=== PATIENT | male | born 1925 | race Caucasian/White ===

== ENCOUNTER → 2016-07-06 | Outpatient (CLI) | payer OTHER ==
[~2016-07-06] MED LIST: ACETAMINOPHEN325 M1 PO; COZAAR 50 MG TA50 M1 PO; MULTIVITAMINS1 EAC7 PO; XARELTO20 MG PO
--- NOTE | ~2016-07-06 | 2DMMODE ---
[facility] [address] 2 D/M-MODE ECHOCARDIOGRAM Name: JORDENMARÍA E Room #: REG CL Sammi#: [id number] Admission: 07/06/16 Attend Phys: Augustin Mary Discharge: Date of : [birth year] Date of Service: 07/06/16 0945 Report #: [id number] THIS REPORT FOR: //name// APPROVED REPORT Study performed: 07/06/2016 08:03:02 EXAM: Comprehensive 2D, Doppler, and color-flow Echocardiogram Patient Location: Out-Patient Status: routine Other Information Study Quality: Adequate Indications Permanent Afib. Pacemaker, HTN 2D Dimensions RVDd: 44.34 mm LVEF(%): 64.48 (>50%) IVSd: 11.43 (7-11mm) LVOT Diam: 20.81 (18-24mm) LVDd: 44.92 mm PWd: 8.78 (7-11mm) Ascending Ao: 34.26 (22-36mm) LVDs: 29.18 (25-40mm) Aortic Root: 32.76 mm Matta's LVEF: 64.48 % Volumes Left Atrial Volume (Systole) Single Plane 4CH: 163.40 mL Single Plane 2CH: 139.02 mL LA ESV Index: 85.00 mL/m2 Aortic Valve AoV Peak Wilian.: 2.08 m/s AO Peak Gr.: 17.27 mmHg LVOT Max P.93 mmHg AO Mean Gr.: 9.07 mmHg AO V2 Mean: 1.44 m/s LVOT Max V: 0.99 m/s AO V2 VTI: 47.06 cm CHHAYA Vmax: 1.62 cm2 Mitral Valve MV Decel. Time: 174.77 ms MV E Max Wilian.: 1.39 m/s IVRT: 59.98 ms [facility] [address] 2 D/M-MODE ECHOCARDIOGRAM Name: MARÍA LEONARDO Room #: CYNDI Saenz#: [id number] Admission: 07/06/16 Attend Phys: Augustin Mary Discharge: Date of : [birth year] Date of Service: 07/06/16 0945 Report #: [id number] Pulmonary Valve PV Peak Wilian.: 0.77 m/s PV Peak Gr.: 2.36 mmHg Pulmonary Vein P Vein S: 0.49 m/s P Vein D: 0.60 m/s P Vein S/D Ratio: 0.82 Tricuspid Valve TR Peak Wilian.: 3.00 m/s RAP Estimate: 5.00 mmHg TR Peak Gr.: 36.05 mmHg RVSP: 41.00 mmHg Left Ventricle The left ventricle is normal size. There is normal LV segmental wall motion. There is normal left ventricular wall thickness. Left ventricular systolic function is normal. LVEF is 55-60%. This study is not technically sufficient to allow evaluation of the LV diastolic function due to atrial fibrillation. Right Ventricle Right ventricle is dilated. The right ventricular systolic function is normal. Pacemaker lead is present in the right ventricle. Atria Left atrium is severely dilated. Right atrium is severely dilated. Aortic Valve Aortic valve is thickened and calcified. No aortic regurgitation is present. Mild aortic stenosis. Mitral Valve Moderate mitral annular calcification. Mild to moderate mitral regurgitation. No evidence of mitral valve stenosis. Tricuspid Valve The tricuspid valve is normal in structure. There is moderate tricuspid regurgitation. The right atrial pressure is estimated at 5 mmHg. There is moderate pulmonary hypertension with an estimated PAP of 41mmHg. Pulmonic Valve The pulmonary valve is normal in structure. Trace pulmonic regurgitation. Great Vessels [facility] [address] [place] [address] 2 D/M-MODE ECHOCARDIOGRAM Name: MARÍA LEONARDO Room #: CYNDI SONY Saenz#: [id number] Admission: 07/06/16 Attend Phys: Augustin Mary Discharge: Date of : [birth year] Date of Service: 07/06/16 0945 Report #: [id number] The aortic root is normal in size. The ascending aorta is normal in size. IVC is normal in size and collapses >50% with inspiration. Pericardium There is no pericardial effusion. <Conclusion> Left ventricular systolic function is normal. There is normal LV segmental wall motion. LVEF 55-60%. Both atria are severely dilated. Aortic valve is thickened and calcified. Mild aortic stenosis; no insufficiency. Moderate mitral annular calcification. Mild to moderate mitral regurgitation. Pulmonary artery pressure of 40mmHg There is no pericardial effusion. <ELECTRONICALLY SIGNED> By: Russ Eckert MD, [facility] 07/06/1645 4 4 Russ Eckert MD, FAC /INF
== END ==
LOC: CV 08:32
DX: I48.91 Unspecified atrial fibrillation (principal)